=== PATIENT | male | born 1950 | race African-American/Black ===

== ENCOUNTER 2017-08-20 16:55 | Inpatient (IN) | payer MEDICARE, MEDICAID ==
[~2017-08-20] VITALS: Ht 188 cm; Wt 89.8 kg
[~2017-08-20 16:55] MED LIST: ASPI-1159 PO; INSU3INS6 SUBCUT; METH10TA2 PO; NIFE90TA34 PO
[2017-08-20 17:00] VITALS: BP 129/84
[2017-08-20] MEDS ORDERED: DEXTROSE 50% WATER 50ML SYRINGE IV PRN (17:30)
[2017-08-20] MEDS ORDERED: DIPHENHYDRAMINE 50MG/ML VIAL IV PRN (17:30)
[2017-08-20] MEDS ORDERED: SODIUM CHLORIDE 0.9% 1,000 ML IV SCH (17:30)
[2017-08-20] MEDS ORDERED: ONDANSETRON HCL 4MG/2ML VIAL IV PRN (17:30)
[2017-08-20] MEDS ORDERED: CLONIDINE 0.1MG TABLET PO PRN (17:30)
[2017-08-20] MEDS ORDERED: BISACODYL 5MG TABLET PO PRN (17:30)
[2017-08-20 18:18] VITALS: BP 129/84
[2017-08-20] MEDS: PANTOPRAZOLE SODIUM 40 MG/VIAL IV SCH (18:47)
[2017-08-20] MEDS: MORPHINE SULFATE 4 MG/ML CPJ (NOT FOR IM USE) IV PRN (20:08)
[2017-08-20] MEDS: ATORVASTATIN CALCIUM 40MG TABLET PO SCH (20:10)
[2017-08-20] MEDS: BLOOD SUGAR DIAGNOSTIC STRIP TEST SCH (21:00)
[2017-08-20] MEDS: INSULIN LISPRO 100 UNITS/ML SUBCUT SCH (21:00)
[2017-08-20] MEDS: ZOLPIDEM TARTRATE 5MG TABLET PO PRN (23:27)
[2017-08-21] MEDS: BLOOD SUGAR DIAGNOSTIC STRIP TEST SCH ×4 (06:24→21:20)
[2017-08-21] MEDS: INSULIN LISPRO 100 UNITS/ML SUBCUT SCH ×4 (06:24→21:00)
[2017-08-21 08:00] VITALS: BP 139/87
[2017-08-21] MEDS: PANTOPRAZOLE SODIUM 40 MG/VIAL IV SCH ×2 (08:00→17:19)
[2017-08-21] MEDS ORDERED: METHADONE HCL 10MG TABLET PO SCH (09:00)
[2017-08-21] MEDS: NIFEDIPINE XL 60MG TAB PO SCH (09:32)
[2017-08-21] MEDS: ASPIRIN 81MG TABLET PO SCH (09:32)
[2017-08-21] MEDS: METHADONE HCL 10MG TABLET PO SCH (09:33)
[2017-08-21] MEDS ORDERED: ACETAMINOPHEN 325MG TABLET PO PRN (12:30)
[2017-08-21] MEDS: MORPHINE SULFATE 4 MG/ML CPJ (NOT FOR IM USE) IV PRN (16:05)
[2017-08-21] MEDS ORDERED: SIMETHICONE 80MG TABLET CHEW PO PRN (18:30)
[2017-08-21] MEDS ORDERED: SENNOSIDES 8.6MG TABLET PO PRN (18:30)
[2017-08-21] MEDS ORDERED: MAGNESIUM/ALUMINUM HYDROXIDE/SIMETHICONE 30ML UDC PO PRN (18:30)
[2017-08-21 20:00] VITALS: BP 131/80
[2017-08-21] MEDS: ATORVASTATIN CALCIUM 40MG TABLET PO SCH (21:20)
[2017-08-21] MEDS: ZOLPIDEM TARTRATE 5MG TABLET PO PRN (21:27)
[2017-08-22] MEDS: BLOOD SUGAR DIAGNOSTIC STRIP TEST SCH ×4 (05:52→21:26)
[2017-08-22] MEDS: INSULIN LISPRO 100 UNITS/ML SUBCUT SCH ×4 (05:52→21:00)
[2017-08-22] MEDS: PANTOPRAZOLE 40MG DR TABLET PO SCH (06:20)
[2017-08-22 08:09] VITALS: BP 127/80
[2017-08-22] MEDS: ASPIRIN 81MG TABLET PO SCH (08:55)
[2017-08-22] MEDS: NIFEDIPINE XL 60MG TAB PO SCH (08:55)
[2017-08-22] MEDS: DOCUSATE SODIUM 250MG CAPSULE PO SCH ×2 (08:55→17:12)
[2017-08-22] MEDS: METHADONE HCL 10MG TABLET PO SCH (08:57)
[2017-08-22 20:00] VITALS: BP 122/77
[2017-08-22] MEDS: ATORVASTATIN CALCIUM 40MG TABLET PO SCH (21:26)
[2017-08-22] MEDS: ZOLPIDEM TARTRATE 5MG TABLET PO PRN (21:38)
[2017-08-23] MEDS: BLOOD SUGAR DIAGNOSTIC STRIP TEST SCH ×4 (06:06→21:28)
[2017-08-23] MEDS: PANTOPRAZOLE 40MG DR TABLET PO SCH (06:07)
[2017-08-23] MEDS: INSULIN LISPRO 100 UNITS/ML SUBCUT SCH ×4 (06:07→21:00)
[2017-08-23 08:00] VITALS: BP 132/79
[2017-08-23] MEDS: DOCUSATE SODIUM 250MG CAPSULE PO SCH ×2 (09:24→17:00)
[2017-08-23] MEDS: NIFEDIPINE XL 60MG TAB PO SCH (09:25)
[2017-08-23] MEDS: ASPIRIN 81MG TABLET PO SCH (09:25)
[2017-08-23] MEDS: METHADONE HCL 10MG TABLET PO SCH (09:27)
[2017-08-23 20:00] VITALS: BP 142/94
[2017-08-23] MEDS: ATORVASTATIN CALCIUM 40MG TABLET PO SCH (21:27)
[2017-08-23] MEDS: AMITRIPTYLINE 10MG TABLET PO SCH (21:28)
[2017-08-23] MEDS: ZOLPIDEM TARTRATE 5MG TABLET PO PRN (21:36)
[2017-08-24] MEDS: PANTOPRAZOLE 40MG DR TABLET PO SCH (06:12)
[2017-08-24] MEDS: BLOOD SUGAR DIAGNOSTIC STRIP TEST SCH ×4 (06:23→21:51)
[2017-08-24 08:00] VITALS: BP 132/82
[2017-08-24] MEDS: INSULIN LISPRO 100 UNITS/ML SUBCUT SCH ×4 (08:41→21:00)
[2017-08-24] MEDS: DOCUSATE SODIUM 250MG CAPSULE PO SCH ×2 (08:52→17:58)
[2017-08-24] MEDS: NIFEDIPINE XL 60MG TAB PO SCH (08:52)
[2017-08-24] MEDS: ASPIRIN 81MG TABLET PO SCH (08:52)
[2017-08-24] MEDS: METHADONE HCL 10MG TABLET PO SCH (09:05)
[2017-08-24 20:00] VITALS: BP 130/81
[2017-08-24] MEDS: ATORVASTATIN CALCIUM 40MG TABLET PO SCH (21:50)
[2017-08-24] MEDS: ZOLPIDEM TARTRATE 5MG TABLET PO PRN (21:51)
[2017-08-24] MEDS: AMITRIPTYLINE 10MG TABLET PO SCH (21:51)
[2017-08-25] MEDS: BLOOD SUGAR DIAGNOSTIC STRIP TEST SCH ×4 (06:27→20:55)
[2017-08-25] MEDS: PANTOPRAZOLE 40MG DR TABLET PO SCH (06:28)
[2017-08-25] MEDS: INSULIN LISPRO 100 UNITS/ML SUBCUT SCH ×4 (07:13→20:55)
[2017-08-25 08:00] VITALS: BP 138/75
[2017-08-25] MEDS: ASPIRIN 81MG TABLET PO SCH (08:09)
[2017-08-25] MEDS: METHADONE HCL 10MG TABLET PO SCH (08:10)
[2017-08-25] MEDS: NIFEDIPINE XL 60MG TAB PO SCH (08:10)
[2017-08-25] MEDS: DOCUSATE SODIUM 250MG CAPSULE PO SCH ×2 (08:10→17:05)
[2017-08-25] MEDS ORDERED: LACTULOSE 20G/30ML UDC PO PRN (15:00)
[2017-08-25] MEDS ORDERED: LACTULOSE 20G/30ML UDC PO SCH (15:00)
[2017-08-25 20:00] VITALS: BP 144/90
[2017-08-25] MEDS: ATORVASTATIN CALCIUM 40MG TABLET PO SCH (20:51)
[2017-08-25] MEDS: AMITRIPTYLINE 10MG TABLET PO SCH (20:51)
[2017-08-25] MEDS: ZOLPIDEM TARTRATE 5MG TABLET PO PRN (23:05)
[2017-08-26] MEDS: PANTOPRAZOLE 40MG DR TABLET PO SCH (06:14)
[2017-08-26] MEDS: BLOOD SUGAR DIAGNOSTIC STRIP TEST SCH ×4 (06:14→21:34)
[2017-08-26] MEDS: INSULIN LISPRO 100 UNITS/ML SUBCUT SCH ×4 (06:44→21:00)
[2017-08-26 08:00] VITALS: BP 148/99
[2017-08-26] MEDS: ASPIRIN 81MG TABLET PO SCH (09:56)
[2017-08-26] MEDS: DOCUSATE SODIUM 250MG CAPSULE PO SCH ×2 (09:56→17:00)
[2017-08-26] MEDS: METHADONE HCL 10MG TABLET PO SCH (09:57)
[2017-08-26] MEDS: NIFEDIPINE XL 60MG TAB PO SCH (09:57)
[2017-08-26 20:00] VITALS: BP 134/75
[2017-08-26] MEDS: ATORVASTATIN CALCIUM 40MG TABLET PO SCH (22:01)
[2017-08-26] MEDS: AMITRIPTYLINE 10MG TABLET PO SCH (22:01)
[2017-08-26] MEDS: ZOLPIDEM TARTRATE 5MG TABLET PO PRN (22:40)
[2017-08-27] MEDS: INSULIN LISPRO 100 UNITS/ML SUBCUT SCH (06:20)
[2017-08-27] MEDS: BLOOD SUGAR DIAGNOSTIC STRIP TEST SCH (06:20)
[2017-08-27] MEDS: PANTOPRAZOLE 40MG DR TABLET PO SCH (06:20)
[2017-08-27 08:21] VITALS: BP 126/81
[2017-08-27] MEDS: ASPIRIN 81MG TABLET PO SCH (08:39)
[2017-08-27] MEDS: NIFEDIPINE XL 60MG TAB PO SCH (08:39)
[2017-08-27] MEDS: METHADONE HCL 10MG TABLET PO SCH (08:41)
[2017-08-27] MEDS: DOCUSATE SODIUM 250MG CAPSULE PO SCH ×2 (08:43→16:39)
[2017-08-27 20:00] VITALS: BP 123/70
[2017-08-27] MEDS: ATORVASTATIN CALCIUM 40MG TABLET PO SCH (20:32)
[2017-08-27] MEDS: AMITRIPTYLINE 10MG TABLET PO SCH (20:32)
[2017-08-27] MEDS: ZOLPIDEM TARTRATE 5MG TABLET PO PRN (23:01)
[2017-08-28] MEDS: PANTOPRAZOLE 40MG DR TABLET PO SCH (06:22)
[2017-08-28 07:00] VITALS: BP 112/69
[2017-08-28] MEDS: ASPIRIN 81MG TABLET PO SCH (09:02)
[2017-08-28] MEDS: DOCUSATE SODIUM 250MG CAPSULE PO SCH ×2 (09:02→16:10)
[2017-08-28] MEDS: METHADONE HCL 10MG TABLET PO SCH (09:05)
[2017-08-28 10:20] VITALS: BP 126/86
[2017-08-28] MEDS: NIFEDIPINE XL 60MG TAB PO SCH (10:25)
[2017-08-28 20:00] VITALS: BP 136/80
[2017-08-28] MEDS: ATORVASTATIN CALCIUM 40MG TABLET PO SCH (21:35)
[2017-08-28] MEDS: ZOLPIDEM TARTRATE 5MG TABLET PO PRN (21:35)
[2017-08-28] MEDS: AMITRIPTYLINE 10MG TABLET PO SCH (21:35)
[2017-08-29] MEDS: PANTOPRAZOLE 40MG DR TABLET PO SCH (06:19)
[2017-08-29 06:50] LABS: BASOPHILS % 0.9 % (0.0-2.0); EOSINOPHILS % 5.5 % (0.0-5.0); HEMATOCRIT. 38.2 % (42.0-52.0); HEMOGLOBIN. 12.8 g/dL (14.0-18.0); LYMPHOCYTES % 34.5 % (20.0-50.0); MEAN CORPUSCULAR HEMOGLOBIN 29.3 pg (28.0-32.0); MEAN CORPUSCULAR VOLUME 87.5 fL (80.0-94.0); MEAN PLATELET VOLUME 7.9 fl (7.4-10.4); MONOCYTES % 11.1 % (2.0-8.0); PLATELET 181 x1000/uL (130-400); RED BLOOD CELL COUNT 4.36 mill/uL (4.7-6.1)
[2017-08-29 07:27] LABS: CHLORIDE 105 mEq/L (98-107)
[2017-08-29 08:06] VITALS: BP 125/85
[2017-08-29] MEDS: DOCUSATE SODIUM 250MG CAPSULE PO SCH ×2 (09:00→17:00)
[2017-08-29] MEDS: ASPIRIN 81MG TABLET PO SCH (10:13)
[2017-08-29] MEDS: NIFEDIPINE XL 60MG TAB PO SCH (10:17)
[2017-08-29] MEDS: METHADONE HCL 10MG TABLET PO SCH (10:17)
[2017-08-29 20:00] VITALS: BP 146/77
[2017-08-29] MEDS: ATORVASTATIN CALCIUM 40MG TABLET PO SCH (21:51)
[2017-08-29] MEDS: AMITRIPTYLINE 10MG TABLET PO SCH (21:51)
[2017-08-29] MEDS: ZOLPIDEM TARTRATE 5MG TABLET PO PRN (21:51)
[2017-08-30] MEDS: PANTOPRAZOLE 40MG DR TABLET PO SCH (06:12)
[2017-08-30 08:00] VITALS: BP 120/71
[2017-08-30] MEDS: NIFEDIPINE XL 60MG TAB PO SCH (08:35)
[2017-08-30] MEDS: METHADONE HCL 10MG TABLET PO SCH (08:37)
[2017-08-30] MEDS: ASPIRIN 81MG TABLET PO SCH (08:52)
[2017-08-30] MEDS: DOCUSATE SODIUM 250MG CAPSULE PO SCH (09:00)
[2017-08-30 12:27] VITALS: BP 120/71
== END 2017-08-30 16:45 | disposition home or self-care (01) | DRG 65 ==
PROVIDERS: ADMIT Psychiatry & Neurology Neurology; ATTEND Internal Medicine
DX: I63.9 Cerebral infarction, unspecified (principal); K92.2 Gastrointestinal hemorrhage, unspecified; K92.0 Hematemesis; F01.50 Vascular dementia, unspecified severity, without behavioral disturbance, psychotic disturbance, mood disturbance, and anxiety; G62.9 Polyneuropathy, unspecified; M48.02 Spinal stenosis, cervical region; I10 Essential (primary) hypertension; E78.5 Hyperlipidemia, unspecified; B19.20 Unspecified viral hepatitis C without hepatic coma; E11.9 Type 2 diabetes mellitus without complications; G89.4 Chronic pain syndrome; R26.9 Unspecified abnormalities of gait and mobility; M79.609 Pain in unspecified limb; R51 Headache; F06.31 Mood disorder due to known physiological condition with depressive features; M47.812 Spondylosis without myelopathy or radiculopathy, cervical region; Z79.82 Long term (current) use of aspirin; Z79.891 Long term (current) use of opiate analgesic; Z79.899 Other long term (current) drug therapy
CPT/HCPCS: 36415; 70220; 80048; 82962; 85025; 92523; 92610; 93970; 97110; 97112; 97116; 97162; 97166; 97530; 97535; C9113; J1815; J2270; J7030